=== PATIENT | female | born 1950 | race Caucasian/White ===

== ENCOUNTER 2025-09-15 12:17 | Emergency (ER) | payer MEDICARE, OTHER ==
[~2025-09-15] VITALS: Ht 165.1 cm; Wt 68.0 kg
--- NOTE | 2025-09-15 12:27 | NUR ---
"Had urine problems x2days was seen and given Abx NOT better"
--- NOTE | 2025-09-15 12:42 | NUR ---
URINE COLLECTED, GIVEN TO LAB
[2025-09-15 13:05] LABS: PLATELET COUNT (AUTO) 221 K/uL (150-450); RED BLOOD CELL COUNT(AUTO) 3.89 MIL/uL (4.0-5.2); RED CELL DISTRIBUTION WIDTH 13.9 % (11.5-15.0); WHITE BLOOD COUNT (AUTO) 8.3 K/uL (4.3-11.0)
[2025-09-15 13:19] LABS: CALCIUM, SERUM 9.3 mg/dL (8.5-10.1); CREATININE 0.9 mg/dL (0.6-1.3); SODIUM SERUM 137.0 mmol/L (136-145); UREA NITROGEN, BLOOD 20.0 mg/dL (7-18)
[2025-09-15 13:20] LABS: APPEARANCE,URINE CLEAR (CLEAR); BLOOD, URINE NEGATIVE Ery/uL (NEGATIVE); LEUKOCYTE ESTERASE ,URINE NEGATIVE (NEGATIVE); NITRITE, URINE NEGATIVE (NEGATIVE); UGLUCOSE NEGATIVE (NEGATIVE)
[2025-09-15 13:27] LABS: ASPARTATE AMINOTRANSFERASE 30.0 U/L (15-37); TOTAL PROTEIN, SERUM 7.6 g/dL (6.4-8.2)
[2025-09-15 13:29] LABS: ADD URINE CULTURE NO
[2025-09-15] MEDS ORDERED: BENZ-13 PO (14:17)
[2025-09-15] MEDS ORDERED: IBUP-1955 PO (14:17)
--- NOTE | 2025-09-15 14:22 | NUR ---
Patient discharged to home in stable condition. Written and verbal after care instructions given. Patient verbalizes understanding of instruction.
[2025-09-15 14:24] VITALS: BP 147/70; TEMP 99; O2SAT 97
== END 2025-09-15 14:25 | disposition home or self-care (01) ==
LOC: ER 12:25
DX: J06.9 Acute upper respiratory infection, unspecified (principal); N39.0 Urinary tract infection, site not specified; E11.9 Type 2 diabetes mellitus without complications; I10 Essential (primary) hypertension; Z88.0 Allergy status to penicillin; Z87.440 Personal history of urinary (tract) infections
CPT/HCPCS: 36415; 80048-TC; 80076-TC; 81001; 83690-TC; 85025-TC